=== PATIENT | female | born 1950 | race Caucasian/White ===

== ENCOUNTER 2021-07-23 04:53 | Inpatient (IN) | payer MEDICARE, BC ==
[2021-07-23 06:27] LABS: #Basophils 0.1 10x3/uL (0.0-0.2); #Eosinphils 0.4 10x3/uL (0.0-0.5); #Monocytes 0.7 10x3/uL (0.0-1.1); #Neutrophils 4.4 10x3/uL (1.5-8.4); %Basophils 1.1 % (0.0-2.0); %Eosinophils 5.4 % (0.0-6.0); %Lymphocytes 17.5 % (18.0-47.0); %Neutrophils 65.7 % (40.0-75.0); Hemoglobin 13.2 g/dL (12.0-15.5); Mean Corpuscular HGB CONC 32.8 g/dL (32.0-36.0); Mean Corpuscular Hemoglobin 30.8 pg (27.0-33.0); Mean Corpuscular Volume 93.9 fl (81.6-98.3); Mean Platelet Volume 9.9 fl (7.4-10.4); Platelet Count 328 10x3/uL (150-450); Red Blood Cell (RBC) Count 4.29 10x6/uL (3.90-5.03); White Blood Cell (WBC) Count 6.6 10x3/uL (3.5-10.5)
[2021-07-23 07:02] LABS: ALT (SGPT) 13 U/L (8-55); AST (SGOT) 18 U/L (5-34); Albumin 4.3 g/dL (3.4-4.8); Alkaline Phosphatase 44 U/L (40-110); Anion Gap 17 mmol/L (10-20); BUN (Urea Nitrogen) 26 mg/dL (9.8-20.1); Bilirubin, Total 2.8 mg/dL (0.2-1.2); Calc. Creatinine Clearance 0 mL/min (70-130); Calcium 9.7 mg/dL (7.8-10.44); Carbon Dioxide 20 mmol/L (23-31); Chloride 105 mmol/L (98-107); Globulin 2.6 g/dL (2.4-3.5); Glucose 117 mg/dL (83-110); Potassium 4.3 mmol/L (3.5-5.1); Protein, Total 6.9 g/dL (5.8-8.1); Sodium 138 mmol/L (136-145)
[2021-07-23 07:23] LABS: CKMB 1.2 ng/mL (0-6.6)
[2021-07-23] MEDS ORDERED: Furosemide 100 MG/10 ML VIAL ONE (07:49)
[2021-07-23 09:33] LABS: Troponin I 0.178 ng/mL (< 0.028)
[2021-07-23 11:22] LABS: SARS-CoV-2 NAA Rapid Test Not Detected (NotDetected)
[2021-07-23 12:31] LABS: Troponin I 0.182 ng/mL (< 0.028)
[2021-07-23] MEDS ORDERED: Acetaminophen 325 MG TAB PO PRN (14:02)
[2021-07-23] MEDS ORDERED: Ondansetron PF 4 MG/2 ML Vial IVP PRN (14:02)
[2021-07-23] MEDS ORDERED: Acetaminophen 650 MG Suppository PR PRN (14:02)
[2021-07-23] MEDS ORDERED: Ondansetron ODT 4 MG TAB PO PRN (14:02)
[2021-07-23] MEDS ORDERED: Senokot S 8.6-50 MG TAB PO PRN (14:02)
[2021-07-23 16:55] VITALS: BMI 48.4
[2021-07-23] MEDS ORDERED: Furosemide 40 MG/4 ML VIAL SLOW IVP SCH (18:00)
[2021-07-23] MEDS ORDERED: Apixaban 5 MG TAB PO SCH (21:45)
[2021-07-23] MEDS ORDERED: Carvedilol 3.125 MG TAB PO SCH (21:45)
[2021-07-23] MEDS ORDERED: Ubidecarenone 50 MG CAP PO SCH (22:00)
[2021-07-23] MEDS ORDERED: Melatonin 3 MG TAB PO SCH (22:00)
[2021-07-23] MEDS ORDERED: Famotidine 20 MG TAB PO SCH (22:00)
[2021-07-24 03:35] LABS: #Basophils 0.1 10x3/uL (0.0-0.2); #Eosinphils 0.4 10x3/uL (0.0-0.5); #Monocytes 0.9 10x3/uL (0.0-1.1); #Neutrophils 5.1 10x3/uL (1.5-8.4); %Eosinophils 4.6 % (0.0-6.0); %Lymphocytes 16.3 % (18.0-47.0); %Monocytes 12.1 % (0.0-10.0); %Neutrophils 65.7 % (40.0-75.0); Hemoglobin 12.6 g/dL (12.0-15.5); Mean Corpuscular HGB CONC 33.9 g/dL (32.0-36.0); Mean Corpuscular Hemoglobin 30.8 pg (27.0-33.0); Mean Platelet Volume 9.6 fl (7.4-10.4); Platelet Count 294 10x3/uL (150-450); RBC Distribution Width 15.3 % (11.5-14.5); Red Blood Cell (RBC) Count 4.09 10x6/uL (3.90-5.03); White Blood Cell (WBC) Count 7.8 10x3/uL (3.5-10.5)
[2021-07-24 03:39] LABS: Anion Gap 18 mmol/L (10-20); BUN (Urea Nitrogen) 25 mg/dL (9.8-20.1); Calc. Creatinine Clearance 81 mL/min (70-130); Carbon Dioxide 22 mmol/L (23-31); Chloride 105 mmol/L (98-107); Glucose 121 mg/dL (83-110); Potassium 3.7 mmol/L (3.5-5.1); Sodium 141 mmol/L (136-145)
[2021-07-24] MEDS: Furosemide 40 MG/4 ML VIAL SLOW IVP SCH ×2 (05:28→14:25)
[2021-07-24] MEDS: Carvedilol 3.125 MG TAB PO SCH ×2 (08:17→17:03)
[2021-07-24] MEDS: Apixaban 5 MG TAB PO SCH ×2 (08:17→20:28)
[2021-07-24] MEDS ORDERED: Potassium Chloride 20 MEQ TAB PO SCH (09:00)
[2021-07-24 09:52] LABS: Magnesium 1.7 mg/dL (1.6-2.6)
[2021-07-24] MEDS ORDERED: Magnesium 2 GM/50 ML(in water) 2 GM in Premix Bag 1 BAG IVPB SCH (11:00)
[2021-07-24] MEDS: Famotidine 20 MG TAB PO SCH (20:28)
[2021-07-24] MEDS: Melatonin 3 MG TAB PO SCH (20:28)
[2021-07-24] MEDS: Ubidecarenone 50 MG CAP PO SCH (20:30)
[2021-07-25 05:26] LABS: Anion Gap 19 mmol/L (10-20); BUN (Urea Nitrogen) 30 mg/dL (9.8-20.1); Calc. Creatinine Clearance 73 mL/min (70-130); Calcium 9.6 mg/dL (7.8-10.44); Carbon Dioxide 24 mmol/L (23-31); Chloride 103 mmol/L (98-107); Glucose 107 mg/dL (83-110); Potassium 3.8 mmol/L (3.5-5.1); Sodium 142 mmol/L (136-145)
[2021-07-25 05:34] LABS: #Basophils 0.1 10x3/uL (0.0-0.2); #Eosinphils 0.4 10x3/uL (0.0-0.5); #Neutrophils 4.9 10x3/uL (1.5-8.4); %Basophils 0.9 % (0.0-2.0); %Eosinophils 5.7 % (0.0-6.0); Hemoglobin 12.4 g/dL (12.0-15.5); Mean Corpuscular HGB CONC 33.8 g/dL (32.0-36.0); Mean Corpuscular Hemoglobin 30.9 pg (27.0-33.0); Mean Corpuscular Volume 91.5 fl (81.6-98.3); Mean Platelet Volume 10.2 fl (7.4-10.4); Platelet Count 311 10x3/uL (150-450); RBC Distribution Width 15.4 % (11.5-14.5); Red Blood Cell (RBC) Count 4.01 10x6/uL (3.90-5.03); White Blood Cell (WBC) Count 7.7 10x3/uL (3.5-10.5)
[2021-07-25] MEDS: Furosemide 40 MG/4 ML VIAL SLOW IVP SCH (05:49)
[2021-07-25] MEDS: Carvedilol 3.125 MG TAB PO SCH ×2 (09:06→19:33)
[2021-07-25] MEDS: Apixaban 5 MG TAB PO SCH ×2 (09:07→20:36)
[2021-07-25] MEDS ORDERED: Spironolactone 25 MG TAB PO SCH (12:00)
[2021-07-25] MEDS: Furosemide 40 MG TAB PO SCH (12:27)
[2021-07-25] MEDS: Melatonin 3 MG TAB PO SCH (20:36)
[2021-07-25] MEDS: Famotidine 20 MG TAB PO SCH (20:36)
[2021-07-25] MEDS: Ubidecarenone 50 MG CAP PO SCH (20:37)
[2021-07-26] MEDS: Carvedilol 3.125 MG TAB PO SCH ×2 (08:55→17:11)
[2021-07-26] MEDS: Furosemide 40 MG TAB PO SCH ×2 (08:55→15:46)
[2021-07-26] MEDS: Apixaban 5 MG TAB PO SCH (08:55)
[2021-07-26 21:02] VITALS: BP 129/78; TEMP 97.1
[2021-07-27] MEDS ORDERED: Empagliflozin 10 MG TAB PO SCH (09:00)
== END 2021-07-26 17:21 | disposition home or self-care (01) | DRG 292 ==
LOC: CSHERS 04:53 → CSHTELE 15:53
PROVIDERS: ADMIT Specialist; ATTEND Specialist
DX: I50.43 Acute on chronic combined systolic (congestive) and diastolic (congestive) heart failure (principal); I42.8 Other cardiomyopathies; I48.20 Chronic atrial fibrillation, unspecified; Z68.41 Body mass index [BMI] 40.0-44.9, adult; G47.33 Obstructive sleep apnea (adult) (pediatric); I25.10 Atherosclerotic heart disease of native coronary artery without angina pectoris; I34.0 Nonrheumatic mitral (valve) insufficiency; Z20.822 Contact with and (suspected) exposure to COVID-19; E66.01 Morbid (severe) obesity due to excess calories; J44.9 Chronic obstructive pulmonary disease, unspecified; N19 Unspecified kidney failure; Z88.8 Allergy status to other drugs, medicaments and biological substances; Z91.018 Allergy to other foods; Z79.899 Other long term (current) drug therapy; Z98.890 Other specified postprocedural states; Z95.810 Presence of automatic (implantable) cardiac defibrillator; Z90.49 Acquired absence of other specified parts of digestive tract; Z79.01 Long term (current) use of anticoagulants
CPT/HCPCS: 36415; 71045; 80048; 80053; 82553; 83735; 83880; 84484; 85025; 93005; 94660; 94760; 96374; 97139; J1940; J3475; U0002

== ENCOUNTER 2021-12-23 11:44 | Observation (INO) | payer MEDICARE, BC ==
[2021-12-23 12:35] LABS: #Basophils 0.1 10x3/uL (0.0-0.2); #Eosinphils 0.3 10x3/uL (0.0-0.5); #Monocytes 0.7 10x3/uL (0.0-1.1); #Neutrophils 5.1 10x3/uL (1.5-8.4); %Basophils 0.8 % (0.0-2.0); %Lymphocytes 15.9 % (18.0-47.0); Hemoglobin 11.3 g/dL (12.0-15.5); Mean Corpuscular HGB CONC 33.2 g/dL (32.0-36.0); Mean Corpuscular Hemoglobin 31.7 pg (27.0-33.0); Mean Corpuscular Volume 95.2 fl (81.6-98.3); Mean Platelet Volume 8.8 fl (7.4-10.4); Platelet Count 304 10x3/uL (150-450); RBC Distribution Width 13.9 % (11.5-14.5); Red Blood Cell (RBC) Count 3.57 10x6/uL (3.90-5.03); White Blood Cell (WBC) Count 7.2 10x3/uL (3.5-10.5)
[2021-12-23 12:49] LABS: ALT (SGPT) 13 U/L (8-55); AST (SGOT) 18 U/L (5-34); Alkaline Phosphatase 49 U/L (40-110); Anion Gap 14 mmol/L (10-20); BUN (Urea Nitrogen) 25 mg/dL (9.8-20.1); Bilirubin, Total 2.2 mg/dL (0.2-1.2); Calc. Creatinine Clearance 0 mL/min (70-130); Calcium 9.6 mg/dL (7.8-10.44); Carbon Dioxide 25 mmol/L (23-31); Chloride 103 mmol/L (98-107); Estimated GFR 40; Glucose 105 mg/dL (83-110); Potassium 4.2 mmol/L (3.5-5.1); Sodium 138 mmol/L (136-145)
[2021-12-23] MEDS ORDERED: Meclizine HCl 25 MG TAB ONE (12:50)
[2021-12-23] MEDS ORDERED: Ondansetron ODT 4 MG TAB ONE (13:46)
[2021-12-23 15:51] LABS: Troponin I 0.265 ng/mL (< 0.028)
[2021-12-23] MEDS ORDERED: Ondansetron ODT 4 MG TAB PO PRN (15:52)
[2021-12-23] MEDS ORDERED: Acetaminophen 325 MG TAB PO PRN (15:52)
[2021-12-23] MEDS ORDERED: Ondansetron PF 4 MG/2 ML Vial IVP PRN (15:52)
[2021-12-23 16:21] VITALS: BMI 47.9
[2021-12-23 18:37] LABS: Troponin I 0.267 ng/mL (< 0.028)
[2021-12-23] MEDS: Apixaban 5 MG TAB PO SCH (19:54)
[2021-12-23] MEDS: Carvedilol 3.125 MG TAB PO SCH (19:54)
[2021-12-24 05:26] LABS: Anion Gap 14 mmol/L (10-20); BUN (Urea Nitrogen) 26 mg/dL (9.8-20.1); Calc. Creatinine Clearance 69 mL/min (70-130); Carbon Dioxide 24 mmol/L (23-31); Chloride 106 mmol/L (98-107); Estimated GFR 38; Glucose 92 mg/dL (83-110); Magnesium 2.3 mg/dL (1.6-2.6); Potassium 4.2 mmol/L (3.5-5.1); Sodium 140 mmol/L (136-145)
[2021-12-24 05:28] LABS: #Basophils 0.1 10x3/uL (0.0-0.2); #Eosinphils 0.4 10x3/uL (0.0-0.5); #Monocytes 0.8 10x3/uL (0.0-1.1); #Neutrophils 4.7 10x3/uL (1.5-8.4); %Basophils 0.8 % (0.0-2.0); %Lymphocytes 18.8 % (18.0-47.0); Hemoglobin 11.1 g/dL (12.0-15.5); Mean Corpuscular HGB CONC 33.2 g/dL (32.0-36.0); Mean Corpuscular Hemoglobin 32.4 pg (27.0-33.0); Mean Corpuscular Volume 97.4 fl (81.6-98.3); Mean Platelet Volume 9.4 fl (7.4-10.4); Platelet Count 298 10x3/uL (150-450); RBC Distribution Width 13.8 % (11.5-14.5); Red Blood Cell (RBC) Count 3.43 10x6/uL (3.90-5.03); White Blood Cell (WBC) Count 7.4 10x3/uL (3.5-10.5)
[2021-12-24 05:51] LABS: CKMB 1.4 ng/mL (0-6.6)
[2021-12-24] MEDS: Apixaban 5 MG TAB PO SCH ×2 (10:49→22:37)
[2021-12-24] MEDS: Carvedilol 3.125 MG TAB PO SCH ×2 (10:49→22:36)
[2021-12-24] MEDS: Furosemide 20 MG TAB PO SCH (10:49)
[2021-12-24] MEDS ORDERED: Midodrine HCl 2.5 MG TAB PO SCH ×2 (13:00→21:00)
[2021-12-24 14:18] LABS: Bilirubin Neg (Negative); Blood, Urine 25 (Negative); Clarity Clear (Clear); Glucose, Urine (Dipstick) 250 mg/dL (Negative); Ketone, Urine Negative (Negative); Leukocyte 100 (Negative); Nitrite Negative (Negative); Protein, Urine (Dipstick) 15 mg/dl (Neg-Trace); Urobilinogen Normal mg/dL (Less than 2)
[2021-12-24 14:45] LABS: Urine Culture Reflex No No
[2021-12-24 15:04] LABS: Bacteria/HPF Rare-Few HPF (None Seen); RBC/HPF 0-3 HPF (0-3); Squamous Epithelial 0-3 HPF (0-3); WBC/HPF 0-3 HPF (0-3)
[2021-12-25 05:20] LABS: #Basophils 0.1 10x3/uL (0.0-0.2); #Eosinphils 0.4 10x3/uL (0.0-0.5); #Monocytes 1.1 10x3/uL (0.0-1.1); #Neutrophils 7.4 10x3/uL (1.5-8.4); %Basophils 0.6 % (0.0-2.0); %Eosinophils 3.6 % (0.0-6.0); %Lymphocytes 11.5 % (18.0-47.0); %Monocytes 10.4 % (0.0-10.0); %Neutrophils 73.6 % (40.0-75.0); Hemoglobin 10.7 g/dL (12.0-15.5); Mean Corpuscular HGB CONC 34.3 g/dL (32.0-36.0); Mean Corpuscular Hemoglobin 32.4 pg (27.0-33.0); Mean Corpuscular Volume 94.5 fl (81.6-98.3); Mean Platelet Volume 9.4 fl (7.4-10.4); Platelet Count 261 10x3/uL (150-450); RBC Distribution Width 13.9 % (11.5-14.5); White Blood Cell (WBC) Count 10.1 10x3/uL (3.5-10.5)
[2021-12-25 05:34] LABS: Anion Gap 13 mmol/L (10-20); BUN (Urea Nitrogen) 23 mg/dL (9.8-20.1); Calc. Creatinine Clearance 81 mL/min (70-130); Calcium 8.8 mg/dL (7.8-10.44); Carbon Dioxide 24 mmol/L (23-31); Chloride 103 mmol/L (98-107); Estimated GFR 47; Glucose 102 mg/dL (83-110); Potassium 3.9 mmol/L (3.5-5.1); Sodium 136 mmol/L (136-145)
[2021-12-25] MEDS ORDERED: Spironolactone 25 MG TAB PO SCH (08:00)
[2021-12-25] MEDS: Midodrine HCl 2.5 MG TAB PO SCH ×2 (08:04→13:21)
[2021-12-25] MEDS: Carvedilol 3.125 MG TAB PO SCH (09:22)
[2021-12-25] MEDS: Apixaban 5 MG TAB PO SCH (09:22)
[2021-12-25] MEDS: Furosemide 20 MG TAB PO SCH (09:23)
[2021-12-25 12:04] VITALS: BP 96/55; TEMP 97.3
== END 2021-12-25 14:56 | disposition home or self-care (01) ==
LOC: CSHERS 11:44 → CSHTELE 15:55 → INTOOBSV 15:55
PROVIDERS: ADMIT Internal Medicine; ATTEND Hospitalist
DX: R42 Dizziness and giddiness (principal); I50.43 Acute on chronic combined systolic (congestive) and diastolic (congestive) heart failure; I25.10 Atherosclerotic heart disease of native coronary artery without angina pectoris; I48.20 Chronic atrial fibrillation, unspecified; I34.0 Nonrheumatic mitral (valve) insufficiency; I49.3 Ventricular premature depolarization; I95.89 Other hypotension; R31.29 Other microscopic hematuria; Z20.822 Contact with and (suspected) exposure to COVID-19; E66.01 Morbid (severe) obesity due to excess calories; G47.33 Obstructive sleep apnea (adult) (pediatric); R77.8 Other specified abnormalities of plasma proteins; N17.9 Acute kidney failure, unspecified; N18.9 Chronic kidney disease, unspecified; I21.4 Non-ST elevation (NSTEMI) myocardial infarction; Z95.810 Presence of automatic (implantable) cardiac defibrillator; Z79.01 Long term (current) use of anticoagulants; Z79.899 Other long term (current) drug therapy; Z88.8 Allergy status to other drugs, medicaments and biological substances; Z68.42 Body mass index [BMI] 45.0-49.9, adult
CPT/HCPCS: 70450; 71045; 80048 ×2; 81001; 82553 ×2; 83735; 83880; 84484 ×3; 85025 ×2; 87086; 93005; 93306; 93798; 94760 ×2; 97116; 97535; 99285; G0378 ×3; U0003; U0005; 36415; 80053; 84443; Q0162

== ENCOUNTER 2022-04-06 22:42 | Observation (INO) | payer MEDICARE, BC ==
[~2022-04-06 22:42] MED LIST: Iopamidol 300 61% 100 ML VIAL FS ONE
[2022-04-06] MEDS ORDERED: Morphine 4 MG/ML VIAL ONE (23:27)
[2022-04-06 23:39] LABS: #Monocytes 0.6 10x3/uL (0.0-1.1); %Basophils 0.1 % (0.0-2.0); %Eosinophils 0.1 % (0.0-6.0); %Lymphocytes 6.2 % (18.0-47.0); %Monocytes 4.4 % (0.0-10.0); %Neutrophils 88.9 % (40.0-75.0); Hemoglobin 14.1 g/dL (12.0-15.5); Mean Corpuscular HGB CONC 34.8 g/dL (32.0-36.0); Mean Corpuscular Volume 91.8 fl (81.6-98.3); Mean Platelet Volume 9.1 fl (7.4-10.4); Platelet Count 412 10x3/uL (150-450); RBC Distribution Width 14.8 % (11.5-14.5); Red Blood Cell (RBC) Count 4.41 10x6/uL (3.90-5.03); White Blood Cell (WBC) Count 13.5 10x3/uL (3.5-10.5)
[2022-04-07 00:05] LABS: ALT (SGPT) 15 U/L (8-55); AST (SGOT) 25 U/L (5-34); Albumin 4.5 g/dL (3.4-4.8); Alkaline Phosphatase 52 U/L (40-110); Anion Gap 19 mmol/L (10-20); BUN (Urea Nitrogen) 28 mg/dL (9.8-20.1); Calc. Creatinine Clearance 0 mL/min (70-130); Calcium 10.5 mg/dL (7.8-10.44); Carbon Dioxide 23 mmol/L (23-31); Chloride 103 mmol/L (98-107); Estimated GFR 41; Globulin 3.6 g/dL (2.4-3.5); Glucose 158 mg/dL (83-110); Lipase 21 U/L (8-78); Magnesium 2.6 mg/dL (1.6-2.6); Potassium 4.4 mmol/L (3.5-5.1); Protein, Total 8.1 g/dL (5.8-8.1); Sodium 141 mmol/L (136-145)
[2022-04-07] MEDS ORDERED: HYDROmorphone 0.5 MG/0.5 ML SYRINGE ONE (01:00)
[2022-04-07 01:58] LABS: PTT 28.9 sec (22.0-33.0); Prothrombin Time 10.9 sec (9.5-12.1)
[2022-04-07 02:10] LABS: SARS-CoV-2 NAA Rapid Test Not Detected (NotDetected)
[2022-04-07] MEDS ORDERED: Acetaminophen 325 MG TAB PO PRN (02:14)
[2022-04-07] MEDS ORDERED: Ondansetron PF 4 MG/2 ML Vial IVP PRN (02:14)
[2022-04-07] MEDS ORDERED: Morphine 4 MG/ML VIAL SLOW IVP PRN ×2 (02:14)
[2022-04-07 02:34] LABS: Lactic Acid 2.3 mmol/L (0.5-2.2)
[2022-04-07] MEDS ORDERED: EPINEPHrine 1 MG/ML AMP ONE (02:40)
[2022-04-07] MEDS ORDERED: Bupivacaine PF 0.5% 30 ML VIAL ONE (02:40)
[2022-04-07] MEDS ORDERED: Fentanyl 100 MCG/2 ML VIAL ONE ×2 (02:42→05:19)
[2022-04-07] MEDS ORDERED: SUGAMMADEX SODIUM 200 MG/2 ML VIAL ONE (02:42)
[2022-04-07] MEDS ORDERED: Lidocaine 2% 6 ML SYR ONE (02:42)
[2022-04-07] MEDS ORDERED: Ondansetron PF 4 MG/2 ML Vial ONE ×2 (02:44→04:22)
[2022-04-07] MEDS ORDERED: Rocuronium Bromide 10 MG/ML (10ML VIAL) ONE ×2 (02:44→04:21)
[2022-04-07] MEDS ORDERED: ePHEDrine Sulfate 50 MG/10 ML VIAL ONE (03:01)
[2022-04-07] MEDS ORDERED: Norepinephrine 4 MG/4 ML VIAL ONE (03:08)
[2022-04-07] MEDS ORDERED: Sodium Chloride 0.9% 250 ML 250 ML ONE (03:09)
[2022-04-07] MEDS ORDERED: CEFAZOLIN 1 GM VIAL ONE (03:35)
[2022-04-07] MEDS ORDERED: Midazolam HCl 2 mg/2 ml Vial ONE (03:42)
[2022-04-07] MEDS ORDERED: Bupivacaine 0.25% HCL 30 ML VIAL ONE (04:20)
[2022-04-07] MEDS ORDERED: Lidocaine 2% PF 5 ML VIAL ONE (04:21)
[2022-04-07] MEDS ORDERED: Water For Injection,Sterile 20 ML ONE (04:21)
[2022-04-07] MEDS ORDERED: Lidocaine 1% PF 5 ML VIAL ONE (04:22)
[2022-04-07] MEDS ORDERED: Dexamethasone 4 mg/ml Vial ONE (04:22)
[2022-04-07] MEDS ORDERED: HYDROcodone/Acetaminophen 5/325 mg Tablet PO PRN ×2 (04:43)
[2022-04-07] MEDS ORDERED: Non-Formulary Medication 1 EACH PO PRN (05:10)
[2022-04-07] MEDS ORDERED: Ondansetron HCl/PF 4 MG/2 ML Vial IVP PRN (05:15)
[2022-04-07] MEDS ORDERED: Midodrine HCl 2.5 MG TAB PO SCH (05:15)
[2022-04-07] MEDS ORDERED: Promethazine HCl 25 MG/ML VIAL IM/IV PRN (05:15)
[2022-04-07 07:18] VITALS: BMI 48.4
[2022-04-07] MEDS: Lactated Ringer's 1,000 ML IV SCH ×2 (07:30→11:27)
[2022-04-07] MEDS: Famotidine/PF 20 mg/2ml Vial SLOW IVP SCH ×2 (08:48→21:19)
[2022-04-07 09:54] LABS: Lactic Acid 1.7 mmol/L (0.5-2.2)
[2022-04-07] MEDS ORDERED: Carvedilol 3.125 MG TAB PO SCH (13:00)
[2022-04-07] MEDS ORDERED: Spironolactone 25 MG TAB PO SCH (13:00)
[2022-04-07] MEDS: Midodrine HCl 2.5 MG TAB PO SCH ×2 (14:17→21:20)
[2022-04-07] MEDS: Acetaminophen 325 MG TAB PO PRN (17:13)
[2022-04-07] MEDS ORDERED: Melatonin 3 MG TAB PO SCH (21:00)
[2022-04-07] MEDS ORDERED: Ubidecarenone 50 MG CAP PO SCH (21:00)
[2022-04-07] MEDS: Apixaban 5 MG TAB PO SCH (21:20)
[2022-04-07] MEDS: Carvedilol 3.125 MG TAB PO SCH (21:22)
[2022-04-08] MEDS: Lactated Ringer's 1,000 ML IV SCH ×2 (04:58→12:19)
[2022-04-08] MEDS: Acetaminophen 325 MG TAB PO PRN (05:20)
[2022-04-08] MEDS ORDERED: Spironolactone 25 MG TAB PO SCH (08:00)
[2022-04-08] MEDS ORDERED: Furosemide 20 MG TAB PO SCH (09:00)
[2022-04-08] MEDS: Famotidine/PF 20 mg/2ml Vial SLOW IVP SCH (09:19)
[2022-04-08] MEDS: Carvedilol 3.125 MG TAB PO SCH (09:20)
[2022-04-08] MEDS: Apixaban 5 MG TAB PO SCH (09:20)
[2022-04-08] MEDS: Midodrine HCl 2.5 MG TAB PO SCH ×2 (09:21→13:05)
[2022-04-08 12:45] VITALS: BP 87/49; TEMP 98.2
== END 2022-04-08 13:15 | disposition home health service (06) ==
LOC: CSHERS 22:42 → CSHIMCU 04-07 06:30 → INTOOBSV 04-07 06:30 → CSHTELE 04-07 15:53
PROVIDERS: ADMIT Surgery; ATTEND Surgery
PROC: 0DB80ZZ Excision of Small Intestine, Open Approach (ICD-10-PCS; principal; 2022-04-07)
PROC: 0WQF0ZZ Repair Abdominal Wall, Open Approach (ICD-10-PCS; 2022-04-07)
DX: K42.0 Umbilical hernia with obstruction, without gangrene (principal); K52.9 Noninfective gastroenteritis and colitis, unspecified; K65.8 Other peritonitis; E66.01 Morbid (severe) obesity due to excess calories; Z68.41 Body mass index [BMI] 40.0-44.9, adult; I48.20 Chronic atrial fibrillation, unspecified; Z20.822 Contact with and (suspected) exposure to COVID-19; I25.10 Atherosclerotic heart disease of native coronary artery without angina pectoris; I50.40 Unspecified combined systolic (congestive) and diastolic (congestive) heart failure; Z79.01 Long term (current) use of anticoagulants; Z79.899 Other long term (current) drug therapy; Z88.8 Allergy status to other drugs, medicaments and biological substances; J44.9 Chronic obstructive pulmonary disease, unspecified
CPT/HCPCS: 44120; 49587; 74177; 80053; 83605 ×2; 83690; 83735; 85025; 85610; 85730; 93005; 96374; 96375; 97116 ×2; 97530; 99285; U0002; 36415; 88307; J0171; J0690; J1100; J1170; J2001; J2250; J2270; J2405; J3010; J7050; J7120; Q9967; S0020; S0028

== ENCOUNTER 2022-04-12 10:59 | Emergency (ER) | payer MEDICARE, BC ==
[2022-04-12 11:59] LABS: #Basophils 0.1 10x3/uL (0.0-0.2); #Eosinphils 0.4 10x3/uL (0.0-0.5); #Monocytes 0.9 10x3/uL (0.0-1.1); %Basophils 0.8 % (0.0-2.0); %Eosinophils 4.9 % (0.0-6.0); %Lymphocytes 13.6 % (18.0-47.0); %Monocytes 12.1 % (0.0-10.0); %Neutrophils 68.3 % (40.0-75.0); Hemoglobin 10.8 g/dL (12.0-15.5); Mean Corpuscular HGB CONC 34.3 g/dL (32.0-36.0); Mean Corpuscular Volume 93.2 fl (81.6-98.3); Mean Platelet Volume 9.2 fl (7.4-10.4); Platelet Count 354 10x3/uL (150-450); RBC Distribution Width 14.3 % (11.5-14.5); Red Blood Cell (RBC) Count 3.38 10x6/uL (3.90-5.03); White Blood Cell (WBC) Count 7.3 10x3/uL (3.5-10.5)
[2022-04-12 12:15] LABS: ALT (SGPT) 12 U/L (8-55); AST (SGOT) 21 U/L (5-34); Albumin 3.6 g/dL (3.4-4.8); Alkaline Phosphatase 47 U/L (40-110); Anion Gap 17 mmol/L (10-20); BUN (Urea Nitrogen) 22 mg/dL (9.8-20.1); Bilirubin, Total 2.1 mg/dL (0.2-1.2); Calc. Creatinine Clearance 0 mL/min (70-130); Carbon Dioxide 21 mmol/L (23-31); Chloride 105 mmol/L (98-107); Estimated GFR 61; Glucose 88 mg/dL (83-110); Potassium 4.9 mmol/L (3.5-5.1); Protein, Total 6.6 g/dL (5.8-8.1); Sodium 138 mmol/L (136-145)
== END 2022-04-12 12:40 | disposition home or self-care (01) ==
LOC: CSHERS 10:59
DX: K91.873 Postprocedural seroma of a digestive system organ or structure following other procedure (principal); I48.91 Unspecified atrial fibrillation; J44.9 Chronic obstructive pulmonary disease, unspecified
CPT/HCPCS: 74177; 80053; 85025

== ENCOUNTER 2023-06-23 15:33 | Emergency (ER) | payer MEDICARE, BC | END 2023-06-23 18:15 | disposition home or self-care (01) | LOC: CSHERS 15:33 | DX: S00.83XA Contusion of other part of head, initial encounter (principal); S80.211A Abrasion, right knee, initial encounter; S00.511A Abrasion of lip, initial encounter; S00.31XA Abrasion of nose, initial encounter; J44.9 Chronic obstructive pulmonary disease, unspecified; Z79.01 Long term (current) use of anticoagulants; W01.0XXA Fall on same level from slipping, tripping and stumbling without subsequent striking against object, initial encounter | CPT/HCPCS: 70450; 70486; 72125; G0390 ==